=== PATIENT | female | born 1975 | race Caucasian/White ===

== ENCOUNTER 2016-07-20 00:24 | Emergency (ER) | payer MEDICAID ==
[~2016-07-20] VITALS: Ht 162.6 cm; Wt 73.0 kg
[~2016-07-20 00:24] MED LIST: DIPH25CA84 PO; HYDR25CA PO; PRAZ5CAP2 PO; SERT100T12 PO
[2016-07-20 00:27] VITALS: Ht 162.6 cm; Wt 73.0 kg
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
--- OUTSIDE RECORDS SUMMARY | 2016-07-20 00:28 | XMS REPORT | Continuity of Care Document ---
Author Author [facility] Organization [facility] Address Unknown Phone Unavailable Support Name Relationship Address Phone CAMRON BAKER Oksana DO Caregiver [address] [place] [address] Unavailable MICKIE SALDIVAR APRN Caregiver [address] [place] [address] Unavailable LEXX PILLAI Next Of Kin [address] [facility] [place] [address] Insurance Providers Guarantor Polly Diana Lon Address [address] [place] [address] Email [email or web address] Payer [facility] Policy Number [id number] Subscriber's Name Polly Diana Relationship 18 Self Effective Date 16 Expiration Date 16 Advance Directives Directive Response Recorded Date/Time Advanced Directives Type None 06/14/16 12:05pm Chief Complaint and Reason for Visit Chief Complaint Abdominal Pain Reason for Visit [id number] Bilateral lower abdominal cramping Problems Active Problems Medical Problem Onset Date Status Bilateral lower abdominal cramping Unknown Acute Irregular menstrual bleeding Unknown Acute Past Problems Medical Problem Onset Date Abdominal cramping Unknown Bilateral lower abdominal cramping Unknown Irregular menstrual bleeding Unknown Medications Current Home Medications Medication Dose Units Route Directions Days Qty Instructions Start Date Diphenhydramine Hcl (Benadryl) 25 Mg Capsule 25 Mg Oral Bedtime as needed for Allery Symptoms 06/14/16 Hydroxyzine Pamoate (Vistaril) 25 Mg Capsule 25 Mg Oral Four Times Daily as needed for Prn Orders 06/14/16 Prazosin Hcl 5 Mg Capsule 5 Mg Oral Bedtime 06/14/16 Sertraline Hcl (Sertraline) 100 Mg Tablet 200 Mg Oral Daily 06/14 Social History Social History Problem Response Recorded Date/Time Onset Date Status Hx Substance Use Y MARAJUANA 2 WEEKS AGO 1-2 TIMES 06/14/2016 12:35pm Not Applicable Not Applicable Hx Alcohol Use No 06/14/2016 12:35pm Not Applicable Not Applicable Query Response Start Date Stop Date Smoking Status Current every day smoker Hospital Discharge Instructions No hospital discharge instructions. Plan of Care Discharge Date 06/14/16 2:50pm Disposition 01 DISCHARGED HOME, SELF-CARE Condition at Discharge Improved Instructions/Education Provided Dysfunctional Uterine Bleeding (ED) Prescriptions See Medication Section Referrals MICKIE SALDIVAR APRN Address: [address] [place] [phone] Additional Instructions/Education Your labs does show an anemia. Other labs were normal. You may take zojc-zgn-auibbli iron tablets. You may take olss-hos-xauknde 800 mg of ibuprofen every 8 hours or pbiw-wzj-tmipnhw Aleve 2 tabs in the morning and 2 at night with food for pain. If you bleeding increases and you soak through 6 maxi size pads in one hour return to the ED. [facility]. Follow treatment plan. Care Plan and Goals Physician Care Plan Problem: Irregular menstrual breathing, lower abdominal cramping Goal: Follow up with primary care provider Instructions: Take medications and follow care plan as discussed/written Functional Status No functional status results. Allergies, Adverse Reactions, Alerts No known allergies. Immunizations No immunization records. Vital Signs Acute Vital Signs Vital Response Date/Time Temperature (Fahrenheit) 98.0 deg F (96.8 - 99.1) 06/14/2016 2:50pm Temperature (Calculated Celsius) 36.13213 degrees C (36.0 - 37.3) 06/14/2016 2:50pm Pulse Rate (adult) 83 bpm (60 - 100) 06/14/2016 2:50pm Respiratory Rate 14 breaths/min (10 - 20) 06/14/2016 2:50pm O2 Sat by Pulse Oximetry 98 % (90 - 100) 06/14/2016 2:50pm Blood Pressure 127/73 mm Hg 06/14/2016 2:50pm Height (Feet) 5 feet 06/14/2016 12:05pm Height (Inches) 3.00 inches 06/14/2016 12:05pm Weight (Kilograms) 72.500 kg 06/14/2016 12:05pm Body Mass Index (BMI) 28.0 06/14/2016 12:05pm Results Laboratory Results Test Name Result Units Flags Reference Collection Date/Time Result Date/ Time Comments White Blood Count 7.0 T/MM3 4.5-11.0 06/14/2016 12:32pm 06/14/2016 12: 38pm Red Blood Count 3.86 M/MM3 L 4.00-5.20 06/14/2016 12:32pm 06/14/2016 12: 38pm Hemoglobin 9.8 GM/DL L 12-16 06/14/2016 12:32pm 06/14/2016 12:38pm Hematocrit 31.5 % L 36-46 06/14/2016 12:32pm 06/14/2016 12:38pm Mean Corpuscular Volume 81.6 UM3 80-100 06/14/2016 12:32pm 06/14/2016 12:38pm Mean Corpuscular Hemoglobin 25.4 UUG L 26-34 06/14/2016 12:32pm 2016 12:38pm Mean Corpuscular Hemoglobin Concent 31.1 GM/DL 31-37 06/14/2016 12:32p06/14/2016 12:38pm RDW Standard Deviation 42.6 FL 36.9-50.2 06/14/2016 12:32pm 06/14/2016 12:38pm Platelet Count 227 T/MM3 130-400 06/14/2016 12:32p06/14/2016 12:38pm Mean Platelet Volume 9.4 UM3 9.4-12.4 06/14/2016 12:32pm 06/14/2016 12: 38pm Neutrophils (%) (Auto) 77.7 % H 33-66 06/14/2016 12:32p06/14/2016 12: 38pm Lymphocytes (%) (Auto) 16.6 % L 23-45 06/14/2016 12:32pm 06/14/2016 12: 38pm Monocytes (%) (Auto) 2.9 % 0-9.0 06/14/2016 12:32pm 06/14/2016 12:38pm Eosinophils (%) (Auto) 2.6 % 0-4 06/14/2016 12:32pm 06/14/2016 12:38pm Basophils (%) (Auto) 0.1 % 0-2 06/14/2016 12:32pm 06/14/2016 12:38pm Immature Granulocyte % (Auto) 0.1 % 0.0-0.5 06/14/2016 12:[facility] 2016 12:38pm Absolute Neutrophils (auto) 5.4 T/MM3 1.8-7.7 06/14/2016 12:[facility] 2016 12:38pm Absolute Lymphocytes (auto) 1.2 T/MM3 1-4.8 06/14/2016 12:[facility] 2016 12:38pm Absolute Monocytes (auto) 0.2 T/MM3 0-0.8 06/14/2016 12:[facility] 2016 12:38pm Absolute Eosinophils (auto) 0.2 T/MM3 0-0.5 06/14/2016 12:[facility] 2016 12:38pm Absolute Basophils (auto) 0.0 T/MM3 0-0.2 06/14/2016 12:[facility] 2016 12:38pm Absolute Immature Granulocyte (auto 0.01 T/MM3 0.00-0.03 06/14/2016 12: [facility] 06/14/2016 12:38pm Icterus Index < 2 0-7 06/14/2016 12:[facility] 06/14/2016 12:47pm Chemistry Specimen Hemolysis < 15 0-25 06/14/2016 12:[facility] 06/14/2016 12:47pm 0-25: Specimen Exhibited No Hemolysis. Turbidity < 20 0-20 06/14/2016 12:[facility] 06/14/2016 12:47pm Sodium Level 141 MEQ/L 134-144 06/14/2016 12:[facility] 06/14/2016 12:47pm Potassium Level 3.9 MEQ/L 3.6-5 06/14/2016 12:[facility] 06/14/2016 12:47pm Chloride Level 107 MEQ/L 98-107 06/14/2016 12:[facility] 06/14/2016 12:47pm Carbon Dioxide Level 26 MEQ/L 22-30 06/14/2016 12:[facility] 06/14/2016 12: 47pm Anion Gap 8 MEQ/L 5-15 06/14/2016 12:[facility] 06/14/2016 12:47pm Blood Urea Nitrogen 11.0 MG/DL 7-17 06/14/2016 12:[facility] 06/14/2016 12: 47pm Creatinine 0.7 MG/DL 0.7-1.2 06/14/2016 12:32pm 06/14/2016 12:47pm BUN/Creatinine Ratio 16 RATIO 6-26 06/14/2016 12:32pm 06/14/2016 12: 47pm Glomerular Filtration Rate Calc 93 06/14/2016 12:32pm 06/14/2016 12 :47pm Glucose Level 104 MG/DL 65-110 06/14/2016 12:32pm 06/14/2016 12:47pm Calculated Osmolality 270 MOSM/KG 261-280 06/14/2016 12:32pm 2016 12:47pm Calcium Level 8.7 MG/DL 8.4-10.2 06/14/2016 12:32pm 06/14/2016 12:47pm Urine Collection Type STRAIGHT CATH 06/14/2016 12:52pm 06/14/2016 12:59pm Urine Color YELLOW YELLOW 06/14/2016 12:52pm 06/14/2016 12:59pm Urine Turbidity CLEAR CLEAR 06/14/2016 12:52pm 06/14/2016 12:59pm Urine Specific Jackson <=1.005 L 1.015-1.025 06/14/2016 12:52pm 2016 12:59pm Urine pH 6.0 5.0-8.0 06/14/2016 12:52pm 06/14/2016 12:59pm Urine Leukocyte Esterase NEGATIVE NEGATIVE 06/14/2016 12:52pm 2016 12:59pm Urine Nitrite NEGATIVE NEGATIVE 06/14/2016 12:52pm 06/14/2016 12: 59pm Urine Protein NEGATIVE NEGATIVE 06/14/2016 12:52pm 06/14/2016 12: 59pm Urine Glucose (UA) NEGATIVE NEGATIVE 06/14/2016 12:52pm 06/14/2016 12 :59pm Urine Ketones NEGATIVE NEGATIVE 06/14/2016 12:52pm 06/14/2016 12: 59pm Urine Urobilinogen 0.2 EU/DL NORMAL 06/14/2016 12:52pm 06/14/2016 12: 59pm Urine Bilirubin NEGATIVE NEGATIVE 06/14/2016 12:52pm 06/14/2016 12: 59pm Urine Blood NEGATIVE NEGATIVE 06/14/2016 12:52pm 06/14/2016 12:59pm Urinalysis Comment MICROSCOPIC NOT IND. 06/14/2016 12:52pm 2016 12:59pm Procedures No known history of procedures. Encounters Encounter Location Arrival/Admit Date Discharge/Depart Date Attending Provider Departed Emergency Room [facility] 06/14/16 12:03pm 06/14/16 2: 50pm CAMRON BAKER DO Recent Diagnosis
--- OUTSIDE RECORDS SUMMARY | 2016-07-20 00:28 | XMS REPORT | Referral Summary ---
Author Author [facility] Organization [facility] Address Unknown Phone Unavailable Care Team Providers Care Retail Visual Merchandiser Name Role Phone Primo Quispe Primary Care Physician [phone] Encounter VC Date(s): 05/13/16 - 05/13/16 [facility] [address] [place] [address] [facility] [id number] Discharge Diagnosis: Abnormal laboratory test Discharge Diagnosis: Fatigue Discharge Diagnosis: Fibromyalgia Discharge Disposition: 01-Home or Self Care Attending Physician: Laura Zaragoza MD Admitting Physician: Laura Zaragoza MD Referring Physician: Ari Quispe DO Vital Signs Most recent to 1 oldest [Reference Range]: Peripheral Pulse 64 bpm Rate [60-100 bpm] (05/13/16 1:58 PM) Blood Pressure 126/52 mmHg [90-140/60-90 mmHg] (05/13/16 1:58 PM) Problem List Condition Effective Dates Status Health Status Informant Tobacco Active patient use(Confirmed) Allergies, Adverse Reactions, Alerts No Known Medication Allergies Medications Aleve 220 mg oral tablet mg tabs, Oral, q8hr, as needed for pain, 0 Refill(s) Start Date: 05/13/16 Status: Ordered Allergy (Loratadine) mg, Oral, Daily, 0 Refill(s) Start Date: 05/13/16 Status: Ordered multivitamin Daily, 0 Refill(s) Start Date: 05/13/16 Status: Ordered prosazian prosazian, for BP, 0 Refill(s) Start Date: 05/13/16 Status: Ordered Tylenol Extra Strength 500 mg oral tablet mg tabs, Oral, q6hr, as needed for pain, 0 Refill(s) Start Date: 05/13/16 Status: Ordered Vistaril 25 mg oral capsule mg caps, Oral, TID, as needed for anxiety, 0 Refill(s) Start Date: 05/13/16 Status: Ordered Zoloft 100 mg oral tablet 200 mg 2 tabs, Oral, Daily, 0 Refill(s) Start Date: 05/13/16 Status: Ordered Results Chemistry Most recent to 1 oldest [Reference Range]: Sodium Lvl [135-144 141 mEq/L mEq/L] (05/13/16 2:58 PM) Potassium Lvl 4.5 mEq/L [3.5-5.2 mEq/L] (05/13/16 2:58 PM) Chloride [99-111 108 mEq/L mEq/L] (05/13/16 2:58 PM) CO2 [22-31 mEq/L] 24 mEq/L (05/13/16 2:58 PM) AGAP [3-20] 9 (05/13/16 2:58 PM) BUN [7-19 mg/dL] 11 mg/dL (05/13/16 2:58 PM) Glucose Lvl [70-99 113 mg/dL mg/dL] *HI* (05/13/16 2:58 PM) Creatinine Lvl 0.93 mg/dL [0.57-1.11 mg/dL] (05/13/16 2:58 PM) eGFR [>60 mL/min] >60 mL/min 1 (05/13/16 2:58 PM) Calcium Lvl 8.6 mg/dL [8.9-10.5 mg/dL] *LOW* (05/13/16 2:58 PM) Albumin Lvl [3.5-5.0 4.2 gm/dL gm/dL] (05/13/16 2:58 PM) Total Protein 6.0 gm/dL [6.1-7.7 gm/dL] *LOW* (05/13/16 2:58 PM) Globulin [1.8-4.0 1.8 gm/dL gm/dL] (05/13/16 2:58 PM) ALT [0-55 U/L] 11 U/L (05/13/16 2:58 PM) AST [5-34 U/L] 17 U/L (05/13/16 2:58 PM) Alk Phos [40-150 72 U/L U/L] (05/13/16 2:58 PM) Bili Total [0.2-1.2 0.3 mg/dL mg/dL] (05/13/16 2:58 PM) Total CK [29-168 71 U/L U/L] (05/13/16 2:58 PM) 1Result Comment: Multiply eGFR results by 1.21 for race. Urinalysis Most recent to 1 oldest [Reference Range]: UA Color Yellow (05/13/16 2:45 PM) UA Appear Clear (05/13/16 2:45 PM) UA pH [5.0-8.0] 7.0 (05/13/16 2:45 PM) UA Leuk Est Negative [Negative] (05/13/16 2:45 PM) UA Nitrite Negative [Negative] (05/13/16 2:45 PM) UA Protein Negative [Negative] (05/13/16 2:45 PM) UA Glucose Negative [Negative] (05/13/16 2:45 PM) UA Ketones Negative [Negative] (05/13/16 2:45 PM) UA Urobilinogen 1.0 mg/dL [<1.0 mg/dL] (05/13/16 2:45 PM) UA Bili [Negative] Negative (05/13/16 2:45 PM) UA Blood [Negative] Negative (05/13/16 2:45 PM) UA Spec Grav 1.027 [1.003-1.030] (05/13/16 2:45 PM) Type Clean Catch (05/13/16 2:45 PM) Immunizations No data available for this section Procedures No data available for this section Social History Social History Type Response Smoking Status Current every day smoker; Tobacco use per day: Pack Assessment and Plan No data available for this section
[2016-07-20] MEDS ORDERED: LORAZEPAM 2 MG/ML INJECTION IM ONE (00:30)
--- NOTE | 2016-07-20 00:33 | ERPDOC ---
Departure Disposition Decision Date: Jul 20, 2016 Disposition Decision Time: :35 Disposition: 01 DISCHARGED HOME, SELF-CARE Impression Impression Impression: Primary Impression: Medication withdrawal Substance type: sedative, hypnotic or anxiolytic Qualified Codes: F13.239 - Sedative, hypnotic or anxiolytic dependence with withdrawal, unspecified Additional Impression: Dyspnea Dyspnea type: shortness of breath Qualified Codes: R06.02 - Shortness of breath Severity: Severe Condition: Improved Seen By: Physician only Referrals: MICKIE SALDIVAR APRN (Family) Patient Instructions: Dyspnea (ED) Problems/Meds/Labs Reviewed?: Yes Medications reviewed and manag: Yes Additional Instructions: Take Ativan 0.5 mg one tablet up to 3 times daily as needed for stress/anxiety Call Thursday to see Mickie Acosta or any other provider at [facility] for medication management Follow up care ordered?: Yes Mental Status: Alert Scripts Lorazepam (Ativan) 0.5 Mg Tablet 0.5 MG PO TID for ANXIETY, #9 TAB Prov: GIAN VERA MD 07/20/16 HPI - Dyspnea General Stated Complaint: DIFF BREATHING Time Seen by Provider: 00:25 Source: patient, EMS Exam Limitations: no limitations HPI - Dyspnea Initial Comments Patient was recently changed on her medications from Zoloft and an uncertain heart medication her medications. Since that time the patient has been having worsening feelings of anxiety, depression, and internal restlessness. Patient states that she was instructed by the [facility] pharmacist to triple her daily Xanax from 0.25 mg 2.75 mg daily as needed for her anxiety symptoms. For the past 2 days the patient has been completely out of her Xanax, and since overusing without doctor's condition, she has been unable to refill them. Tonight the patient began experiencing anxiety symptoms with a feeling of shortness of breath, pressure in her head and her chest, and diffuse body aches all over. Patient smoked marijuana at home to try to's, but strangely the symptoms persisted. She called EMS, and was transported to [facility]. Patient had normal vital signs, normal O2 saturation at 100% on room air , and appear to be in no distress whatsoever in route. Issues, no heart issues, and deals primarily with pressure, anxiety and depression. Occurred At: home Onset/Timing: Gradual Duration: 12-24 hrs Severity: moderate Associated Symptoms: chest pain, shortness of breath, DENIES: cough, diaphoresis, fever/chills, headaches, loss of appetite, malaise, nausea/vomiting , rash, seizure, syncope, weakness Aspirin Treatment Today: unknown Hx of Similar Symptoms: No Allergies: Coded Allergies: No Known Allergies (Unverified , 07/20/16) Past History Past Medical History Metabolic: hypertension Respiratory: pneumonia Female: UTI Neurological: other Musculoskeletal: back pain Psychological: anxiety, depression, other Surgical History Denies Surgeries Family History Family PMH: FOUND: other Social History Smoking Status: Never smoker Does patient use chewing tobac: No Second Hand Exposure: No Substance Use Type: marijuana Substance last used: hours (ago) (2) Alcohol Intake: none Sexuality: male partner Record Review Pertinent history updated: Yes Review of Systems Constitutional Constitutional: DENIES: appetite decrease, appetite increase, chills, dizziness , fever, weakness ENMT Ears: DENIES: pain Hearing: DENIES: hearing loss, tinnitus Balance: DENIES: vertigo Mouth/Throat: DENIES: change in swallowing, change in voice, hoarsness, painful swallowing, sore throat Cardiovascular Cardiac: chest pain (chest and back tightness), DENIES: dyspnea on exertion Rhythm/Rate: DENIES: irregular beat, palpitations, tachycardia Vascular: DENIES: pedal edema Pulmonary Respiratory: dyspnea, DENIES: cough, exposure to TB, hyperventilation, last PPD , pleuritic chest pain, pneumonia hx, recent risky activities, tachypnea GI Upper Abdomen: DENIES: dysphagia, heartburn/indigestion, nausea, pain, vomiting Lower Abdomen: DENIES: blood in stool, constipation, diarrhea, pain General: DENIES: burning, dysuria, frequency, pain, urgency Psychiatric Psychiatric: anxiety, nervousness Physical Exam General General Nourishment: well nourished, well developed, appears stated age, no acute distress General Body Habitus: disheveled Vitals and Pain First Documented Vital Signs Date Time Temp Pulse Resp B/P Pulse Ox O2 Delivery O2 Flow Rate FiO2 07/20/16 00:27 98.1 95 28 122/58 100 Room Air Weight: Kilograms: Height (feet): 5 Height (inches): 3.00 Triage Pain Scale: RN VS reviewed by Provider: Yes Normal Exams: Head: Normocephalic w/o trauma Eyes: Pupils are PERRLA w/ EOMI, No scleral icterus, irritation, or foreign bodies noted ENMT: No facial trauma, nasal exudates, pharyngeal erythema, or exudates are noted Neck: Full range of motion, without adenopathy, JVD, bruits or thyromegaly Chest/Resp: Clear all ahmadi, with good airflow, and symmetry bilaterally CV: Regular rate and rhythm, without murmur or gallop, Pulses 2+ all extremities, capillary refill, <2 seconds all ext., no pedal edema noted Abdomen: Bowel sounds positive, soft, non-tender, non-distended, no hepatosplenomegaly, masses or bruits noted Lymphatic: No lymphadenopathy, or lymphedema noted Musculoskeletal: No tenderness, or deformity noted, good range of motion, all extremities Integumentary: No rashes, hives, or bruising noted, hair and nails, without abnormality Neurologic: Patient is alert, and oriented, cranial nerves, motor/sensory/ cerebellar, exams w/o gross deficits, to observation Psychiatric: Patient exhibits, appropriate attention, emotion and affect Progress Results/Orders Orders Procedure Category Date Status Time EKG EKG 07/20/16 Logged Chest, Pa & Lateral RAD 07/20/16 Taken Lorazepam (Ativan) PHA 07/20/16 Complete 00:30 Medications Current ED Medications Lorazepam (Ativan) 1 mg O ONCE IM Last administered on 07/20/16t 01:08; Start 07/20/16 at 00:30; Stop 07/20/16 at 00:32; Status DC Progress Progress Vital signs are normal, patient is oxygenating 100% on room air without difficulty. EKG - normal sinus rhythm without ischemia, ectopy, or infarction Chest x-ray - normal Patient is given Ativan 1 mg IM Rx for Ativan 0.5mg TID #9 GIAN VERA MD Jul 20, 2016 00:33
--- OUTSIDE RECORDS SUMMARY | 2016-07-20 00:37 | XMS REPORT | Continuity of Care Document ---
Author Author [facility] Address Unknown Phone Unavailable Allergies Medications [...] Status Pt. Type Provider Facility Loc./Unit Complaint [id number] 05/11/2015 09:35:00 05/11/2015 23:59:59 CLS Unknown
[2016-07-20] MEDS ORDERED: ALPR0.25 PO (00:57)
--- NOTE | 2016-07-20 01:17 | NUR ---
PT TO IMAGING
--- NOTE | 2016-07-20 01:27 | NUR ---
RETURN FROM IMAGING
[2016-07-20] MEDS ORDERED: LORA0.5T86 PO (01:36)
--- NOTE | 2016-07-20 01:45 | NUR ---
STATUS PT RESTING WITH EYES CLOSED. ANSWERS APPROPRIATELY WHEN SPOKEN TO. DENIES NEEDS AT THIS TIME.
[2016-07-20 02:09] VITALS: BP 101/55; PULSE 91; RESP 18; TEMP 98.1; O2SAT 99
--- NOTE | 2016-07-20 02:09 | NUR ---
DEPART PT GIVEN DI FOR DYSPNEA, ATIVAN, F/U. RX PROVIDED FOR ATIVAN. PT VERBALIZES UNDERSTANDING OF DI. QUESTIONS ASKED/ANSWERED - DENIES FURTHER QUESTIONS/NEEDS AT THIS TIME. PERSONAL BELONGINGS GATHERED. PT ESCORTED/AMBULATED TO ED EXIT - GAIT STABLE, NO SIGN OF DISTRESS.
--- NOTE | 2016-07-20 08:22 | DI ---
INDICATION: ITS.REASON: dyspnea and chest pain with weakness for one week PROCEDURE: CHEST 2-VIEWS UPRIGHT (PA \T\ LAT) Encounter: Initial COMPARISON: None FINDINGS: The lungs are clear without evidence of focal abnormal airspace opacity. There is no pleural effusion or pneumothorax. The heart size, mediastinal contours and pulmonary vascularity are within normal limits. There is no significant skeletal abnormality. IMPRESSION: No acute cardiopulmonary disease. .
== END 2016-07-20 02:09 | disposition home or self-care (01) ==
LOC: ED 00:24
DX: F13.239 Sedative, hypnotic or anxiolytic dependence with withdrawal, unspecified (principal); R06.02 Shortness of breath; R51 Headache; R07.89 Other chest pain; T42.1X5A Adverse effect of iminostilbenes, initial encounter; Y92.009 Unspecified place in unspecified non-institutional (private) residence as the place of occurrence of the external cause
CPT/HCPCS: 71020; 93005; 96372; 99283; J2060